=== PATIENT | female | born 1940 | race Two or more races ===

== ENCOUNTER 2024-09-30 19:32 | Emergency (ER) | payer MEDICARE, OTHER ==
[2024-09-30] MEDS: ACETAMINOPHEN TAB 500 MG TAB PO STA (20:12)
[2024-09-30 20:13] LABS: Basophils % (A) 0 %; Eosinophils # (A) 0.1 k/uL (0-0.7); Eosinophils % (A) 1 %; HCT 50.2 % (34.0-46.0); HGB 16.5 gm/dL (11.4-16.0); Lymphocytes # (A) 1.1 k/uL (1.0-4.8); Lymphocytes % (A) 8 %; MCH 28.6 pg (25.0-35.0); MCV 86.8 fL (80.0-100.0); Mean Platelet Volume 9.1; Monocytes # (A) 0.7 k/uL (0-1.0); Monocytes % (A) 5 %; Neutrophils # (A) 11.4 k/uL (1.3-7.7); Neutrophils % (A) 85 %; Platelet Count 189 k/uL (150-450); RBC 5.78 m/uL (3.80-5.40); RDW 14.3 % (11.5-15.5); WBC 13.3 k/uL (3.8-10.6)
[2024-09-30] MEDS: SODIUM CHLORIDE 0.9% 1,000 ML IV ONE (20:15)
[2024-09-30 20:21] LABS: INR 0.9 (<1.2); Prothrombin Time 10.4 sec (10.0-12.5)
[2024-09-30 20:23] LABS: ALT 49 U/L (4-34); AST 61 U/L (14-36); African American GFR (CKD) >90 (>60 ml/min/1.73 sqM); Albumin 4.5 g/dL (3.5-5.0); Alkaline Phosphatase 90 U/L (38-126); Anion Gap 11 mmol/L; Blood Urea Nitrogen 16 mg/dL (7-17); Calcium 9.7 mg/dL (8.4-10.2); Carbon Dioxide 24 mmol/L (22-30); Chloride 104 mmol/L (98-107); Creatine Kinase 774 U/L (30-135); Glucose 130 mg/dL (74-99); Non-African American GFR(CKD) 87 (>60 ml/min/1.73 sqM); Potassium 3.5 mmol/L (3.5-5.1); Sodium 139 mmol/L (137-145); Total Protein 7.4 g/dL (6.3-8.2)
--- NOTE | 2024-09-30 21:08 | CT ---
EXAMINATION TYPE: CT brain wo con DATE OF EXAM: 09/30/2024 9:00 PM COMPARISON: 08/03/2010. CLINICAL INDICATION: Female, 84 years old with history of fall, fall pain TECHNIQUE: Brain: Axial CT images of the brain were obtained with coronal and sagittal reformats created and rev iewed. Contrast used: None. Oral contrast used: None. CT DLP: combined 2203.8 mGycm, Automated exposure control for dose reduction was used. FINDINGS: Brain: Extra-axial spaces: No abnormal extra-axial fluid collections. Ventricular system: Dilatation in proportion to cerebral atrophy. Cerebral parenchyma: Cerebral atrophy. No acute intraparenchymal hemorrhage or mass effect. The dwyer -white junction is well differentiated. Stable prominent sulci in the left occipital lobe. Scattered hypoattenuating areas are seen within the white matter. Cerebellum: Unremarkable. Mass effect: No evidence of midline shift. Intracranial vasculature: Atherosclerotic calcifications of the intracranial vessels. Soft tissues: Normal. Calvarium/osseous structures: No depressed skull fracture. Paranasal sinuses and mastoid air cells: Mild scattered paranasal sinus disease. Visualized orbits: Bilateral aphakia IMPRESSION: 1. No acute intracranial process. 2. Nonspecific white matter changes, likely secondary to chronic small vessel ischemic disease. [facility], , 09/30/2024 9:06 PM
--- NOTE | 2024-09-30 21:16 | ED ---
General Adult HPI <KayjessicaKlaus - Last Filed: 09/30/24 23:56> - General Source: patient, EMS, RN notes reviewed, old records reviewed Mode of arrival: EMS <Young Dinh - Last Filed: 10/01/24 21:21> - General Chief complaint: Fall Stated complaint: Fall Time Seen by Provider: 09/30/24 19:50 - History of Present Illness Initial comments: Patient is an 84-year-old female presents emergency department after a fall. States the shower curtain diandra fell onto her head this morning at home causing her to fall onto the ground. She lives in an independent living facility and did not have her life alert and with her. She was unable to get up from the shower. Did not lose consciousness. Is not on blood thinners. States she did not faint. States she was finally able to get help. Was brought here this evening for evaluation. Endorses chronic left-sided pain which has been present for years. Primarily complaining of neck pain, lower back pain, left hip pain, left knee pain. Denies any headache, chest pain, abdominal pain. No other acute complaints. Presents for further evaluation at this time. States she did not lose consciousness. Is not on blood thinners. (Young Dinh) - Related Data Previous Rx's Medication Instructions Recorded Acetaminophen-Codeine 300-30mg 1 tab PO Q4H PRN #16 tablet 09/30/24 [Tylenol w/codeine #3] Allergies Allergy/AdvReac Type Severity Reaction Status Date / Time acetaminophen [From Vicodin] AdvReac Nausea & Verified 10/01/24 00:00 Vomiting hydrocodone [From Vicodin] AdvReac Nausea & Verified 10/01/24 00:00 Vomiting morphine AdvReac Nausea & Verified 10/01/24 00:00 Vomiting Review of Systems ROS Other: All systems not noted in ROS Statement are negative. <Klaus Okeefe - Last Filed: 09/30/24 23:56> ROS Other: All systems not noted in ROS Statement are negative. <Young Dinh - Last Filed: 10/01/24 21:21> ROS Statement: Those systems with pertinent positive or pertinent negative responses have been documented in the HPI. Review of Systems: CONST: Denies fever EYES: Denies blurry vision ENT: Denies nasal congestion C/V: Denies Chest pain RESP: Denies shortness of breath GI: Denies abdominal pain : Denies dysuria SKIN: Denies rash. 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 HEAD: Normal with no signs of head trauma. Negative Bella sign. Negative raccoon eyes. EYES: PERRLA, EOMI, conjunctiva normal, no discharge. Pupils are 3 mm and equal bilaterally. ENT: Hearing grossly intact, normal oropharynx. RESPIRATORY: Clear breath sounds bilaterally. No wheezes, rales, or rhonchi. C/V: Regular rate and rhythm. S1 and S2 auscultated, no edema, peripheral pulses 2+ and intact throughout ABD: Abd is soft, nontender, nondistended EXT: Relatively normal range of motion with reduced range of motion of the left hip secondary to acute on chronic hip pain as well as reduced range of motion of left knee secondary to acute on chronic pain. Patient does have midline cervical, lumbar spine tenderness to palpation. No significant tenderness to palpation of thoracic spine. No step-offs or deformities of the spine. SKIN: No rashes or lesions observed on exposed skin. NEURO: Alert and oriented x 4. Cranial nerves II-XII intact. No focal sensory or strength deficits. GCS of 15. NIH is 0. (Young Dinh) Course Vital Signs 09/30/24 10/01/24 19:34 00:43 Temperature 97.5 F L 99.1 F Pulse Rate 98 90 Respiratory 20 18 Rate Blood Pressure 198/100 179/81 O2 Sat by Pulse 95 95 Oximetry Medical Decision Making - Lab Data Result diagrams: 09/30/24 20:05 09/30/24 20:05 <Klaus Okeefe - Last Filed: 09/30/24 23:56> - Lab Data Result diagrams: 09/30/24 20:05 09/30/24 20:05 - EKG Data -: EKG Interpreted by Me <Young Dinh - Last Filed: 10/01/24 21:21> - Medical Decision Making Was pt. sent in by a medical professional or institution (, JEANETH, MARRIAGE THERAPIST, urgent care, hospital, or longterm...) When possible be specific @ -No Did you speak to anyone other than the patient for history (EMS, parent, family, police, friend...)? What history was obtained from this source @ -Spoke with patient's son who assist with patient's past medical history including chronic left-sided pain. Did you review nursing and triage notes (agree or disagree)? Why? @ -I reviewed and agree with nursing and triage notes Were old charts reviewed (outside hosp., previous admission, EMS record, old EKG, old radiological studies, urgent care reports/EKG's, longterm records)? Report findings @ -No old charts were reviewed Differential Diagnosis (chest pain, altered mental status, abdominal pain women, abdominal pain men, vaginal bleeding, weakness, fever, dyspnea, syncope, headache, dizziness, GI bleed, back pain, seizure, CVA, palpatations, mental health, musculoskeletal)? @ -Differential Musculoskeletal Muscular strain, contusion, ligament sprain, fracture, arthritis, septic arthritis, bursitis, cellulitis, muscle spasm, nerve compression, DVT, arterial occlusion, herpes zoster, electrolyte abnormality, tumor.... This is not meant to be in all inclusive list EKG interpreted by me (3pts min.). @ -As above X-rays interpreted by me (1pt min.). @ -Pending CT interpreted by me (1pt min.). @ -Pending U/S interpreted by me (1pt. min.). @ -None done What testing was considered but not performed or refused? (CT, X-rays, U/S, labs)? Why? @ -None What meds were considered but not given or refused? Why? @ -None Did you discuss the management of the patient with other professionals (professionals i.e. JEANETH Gutierrez, MARRIAGE THERAPIST, lab, RT, psych nurse, addiction social worker, manufacturing intern, teacher, general service officer, human services case manager)? Give summary @ -No Was smoking cessation discussed for >3mins.? @ -No Was critical care preformed (if so, how long)? @ -No Were there social determinants of health that impacted care today? How? (Homelessness, low income, unemployed, alcoholism, drug addiction, transportation, low edu. Level, literacy, decrease access to med. care, snf, rehab)? @ -No Was there de-escalation of care discussed even if they declined (Discuss DNR or withdrawal of care, Hospice)? DNR status @ -No What co-morbidities impacted this encounter? (DM, HTN, Smoking, COPD, CAD, Cancer, CVA, ARF, Chemo, Hep., AIDS, mental health diagnosis, sleep apnea, morbid obesity)? @ -None Was patient admitted / discharged? Hospital course, mention meds given and route, prescriptions, significant lab abnormalities, going to OR and other pertinent info. @ -Patient is an 84-year-old female who presents following a fall this morning. Was unable to get back up and was brought this evening for further evaluation. She will be given Tylenol for pain as well as 1 L fluid bolus. Will obtain generalized workup. Is not on blood thinners. Did not lose consciousness. Does not meet criteria for trauma activation. We will obtain imaging of the left hip and knee as well as chest and pelvis x-ray. We also obtain CT imaging of the brain, spine. Patient was in agreement this plan. Vital signs are within acceptable limits. Patient's son who is at bedside was also in agreement this plan. EKG shows left bundle branch block with no prior for comparison. Labs remarkable for mild leukocytosis of 13, elevated hemoglobin of 16. Likely related to dehydration from being on the ground all day. Urine is pending. Creatinine kinase is elevated at 774. At this time, imaging results are pending. Patient does have cervical collar in place since arrival. Patient signed out to Dr. Okeefe pending further results of workup. Undiagnosed new problem with uncertain prognosis? @ -No Drug Therapy requiring intensive monitoring for toxicity (Heparin, Nitro, Insulin, Cardizem)? @ -No Were any procedures done? @ -No (Young Dinh) - Lab Data Lab Results 09/30/24 09/30/24 09/30/24 Range/Units 20:05 20:05 20:05 WBC 13.3 H (3.8-10.6) k/uL RBC 5.78 H (3.80-5.40) m/uL Hgb 16.5 H (11.4-16.0) gm/dL Hct 50.2 H (34.0-46.0) % MCV 86.8 (80.0-100.0) fL MCH 28.6 (25.0-35.0) pg MCHC 33.0 (31.0-37.0) g/dL RDW 14.3 (11.5-15.5) % Plt Count 189 (150-450) k/uL MPV 9.1 Neutrophils % 85 % Lymphocytes % 8 % Monocytes % 5 % Eosinophils % 1 % Basophils % 0 % Neutrophils # 11.4 H (1.3-7.7) k/uL Lymphocytes # 1.1 (1.0-4.8) k/uL Monocytes # 0.7 (0-1.0) k/uL Eosinophils # 0.1 (0-0.7) k/uL Basophils # 0.0 (0-0.2) k/uL PT 10.4 (10.0-12.5) sec INR 0.9 (<1.2) APTT 23.0 (22.0-30.0) sec Sodium 139 (137-145) mmol/L Potassium 3.5 (3.5-5.1) mmol/L Chloride 104 (98-107) mmol/L Carbon Dioxide 24 (22-30) mmol/L Anion Gap 11 mmol/L BUN 16 (7-17) mg/dL Creatinine 0.53 (0.52-1.04) mg/dL Est GFR (CKD-EPI)AfAm >90 (>60 ml/min/1.73 sqM) Est GFR (CKD-EPI)NonAf 87 (>60 ml/min/1.73 sqM) Glucose 130 H (74-99) mg/dL Calcium 9.7 (8.4-10.2) mg/dL Total Bilirubin 1.0 (0.2-1.3) mg/dL AST 61 H (14-36) U/L ALT 49 H (4-34) U/L Alkaline Phosphatase 90 (38-126) U/L Creatine Kinase 774 H (30-135) U/L Total Protein 7.4 (6.3-8.2) g/dL Albumin 4.5 (3.5-5.0) g/dL Urine Color Urine Appearance (Clear) Urine pH (5.0-8.0) Ur Specific [place] (1.001-1.035) Urine Protein (Negative) Urine Glucose (UA) (Negative) Urine Ketones (Negative) Urine Blood (Negative) Urine Nitrite (Negative) Urine Bilirubin (Negative) Urine Urobilinogen (<2.0) mg/dL Ur Leukocyte Esterase (Negative) Urine RBC (0-5) /hpf Urine WBC (0-5) /hpf Amorphous Sediment (None) /hpf Hyaline Casts (0-2) /lpf 09/30/24 Range/Units 23:40 WBC (3.8-10.6) k/uL RBC (3.80-5.40) m/uL Hgb (11.4-16.0) gm/dL Hct (34.0-46.0) % MCV (80.0-100.0) fL MCH (25.0-35.0) pg MCHC (31.0-37.0) g/dL RDW (11.5-15.5) % Plt Count (150-450) k/uL MPV Neutrophils % % Lymphocytes % % Monocytes % % Eosinophils % % Basophils % % Neutrophils # (1.3-7.7) k/uL Lymphocytes # (1.0-4.8) k/uL Monocytes # (0-1.0) k/uL Eosinophils # (0-0.7) k/uL Basophils # (0-0.2) k/uL PT (10.0-12.5) sec INR (<1.2) APTT (22.0-30.0) sec Sodium (137-145) mmol/L Potassium (3.5-5.1) mmol/L Chloride (98-107) mmol/L Carbon Dioxide (22-30) mmol/L Anion Gap mmol/L BUN (7-17) mg/dL Creatinine (0.52-1.04) mg/dL Est GFR (CKD-EPI)AfAm (>60 ml/min/1.73 sqM) Est GFR (CKD-EPI)NonAf (>60 ml/min/1.73 sqM) Glucose (74-99) mg/dL Calcium (8.4-10.2) mg/dL Total Bilirubin (0.2-1.3) mg/dL AST (14-36) U/L ALT (4-34) U/L Alkaline Phosphatase (38-126) U/L Creatine Kinase (30-135) U/L Total Protein (6.3-8.2) g/dL Albumin (3.5-5.0) g/dL Urine Color Colorless Urine Appearance Clear (Clear) Urine pH 6.0 (5.0-8.0) Ur Specific [place] 1.018 (1.001-1.035) Urine Protein 1+ H (Negative) Urine Glucose (UA) Trace H (Negative) Urine Ketones 3+ H (Negative) Urine Blood Moderate H (Negative) Urine Nitrite Negative (Negative) Urine Bilirubin Negative (Negative) Urine Urobilinogen <2.0 (<2.0) mg/dL Ur Leukocyte Esterase Negative (Negative) Urine RBC 17 H (0-5) /hpf Urine WBC 2 (0-5) /hpf Amorphous Sediment Rare H (None) /hpf Hyaline Casts 1 (0-2) /lpf - EKG Data EKG Comments: 12-lead Electrocardiogram Interpretation Note EKG was reviewed and interpreted by myself. 12-lead ECG performed at 2001 is interpreted by me as revealing normal sinus rhythm at a rate of 92 beats per minute. [place] is normal. SC interval is 153 ms, QRS durations 104 ms, QTc is 437 ms.. Bundle branch block morphology present. No obvious acute ischemic process noted.. R wave progression across the precordium was satisfactory. By my interpretation this EKG is non-diagnostic for acute ischemia. (Young Dinh) Disposition Is patient prescribed a controlled substance at d/c from ED?: No <Klaus Okeefe - Last Filed: 09/30/24 23:56> <Young Dinh - Last Filed: 10/01/24 21:21> Clinical Impression: Fall, Contusion, back Disposition: HOME SELF-CARE Condition: Good Instructions (If sedation given, give patient instructions): Fall Prevention for Older Adults (ED), Contusion in Adults (ED) Prescriptions: Acetaminophen-Codeine 300-30mg [Tylenol w/codeine #3] 1 tab PO Q4H PRN #16 tablet PRN Reason: Pain Referrals: Marcus Grossman MD [Primary Care Provider] - 1-2 days
--- NOTE | 2024-09-30 21:24 | CT ---
EXAMINATION TYPE: CT CervThorLumbar spine wo con DATE OF EXAM: 09/30/2024 9:00 PM COMPARISON: None CLINICAL INDICATION: Female, 84 years old with history of fall, pain; Fall, back pain TECHNIQUE: Axial images of the spine were obtained without contrast. Coronal and sagittal reformats w ere performed. CT Contrast: Contrast used: mL of , none. Oral contrast used: none. CT DLP: combined 2203.8 mGycm, Automated exposure control for dose reduction was used. FINDINGS: Multilevel degeneration changes throughout the spine with osteophyte formation disc space narrowing, Schmorl's nodes facet joint arthropathy. Coarsened trabeculation and a few of the vertebral bodies mo st pronounced at T10 . Mild levoscoliosis apex T6-T7. No evidence of fracture. Mild atelectasis along the medial aspect of the right lower lung. Moderate severe atherosclerosis of the arterial vasculature. IMPRESSION: 1. No evidence of fracture. 2. No evidence for significant spinal canal or neural foraminal stenosis. 3. Mild degeneration changes throughout the spine. [facility], , 09/30/2024 9:22 PM
[2024-09-30] MEDS: SODIUM CHLORIDE 0.9% 1,000 ML IV STA (21:35)
--- NOTE | 2024-09-30 22:00 | XR ---
EXAMINATION TYPE: XR pelvis AP view DATE OF EXAM: 09/30/2024 9:56 PM COMPARISON: None CLINICAL INDICATION: Female, 84 years old with history of pain; pain H TECHNIQUE: XR pelvis AP view, examined in a single projection. FINDINGS: There is no evidence of fracture or dislocation. There is no soft tissue abnormality. No a bnormal calcifications are present. The spine appears intact. The hips appear intact. Osteophyte form ation of the superior acetabulum bilaterally with mild joint space narrowing. IMPRESSION: 1. No acute osseous pathology. 2. Moderate degeneration changes of the hip. [facility], , 09/30/2024 9:57 PM
--- NOTE | 2024-09-30 22:01 | XR ---
EXAMINATION TYPE: XR chest 1V portable DATE OF EXAM: 09/30/2024 9:57 PM COMPARISON: None CLINICAL INDICATION: Female, 84 years old with history of fall, pain; TECHNIQUE: XR chest 1V portable Frontal view of the chest. FINDINGS: Lungs/Pleura: There is no evidence of pleural effusion, focal consolidation, or pneumothorax. Pulmonary vascularity: Unremarkable. Heart/mediastinum: Cardiomediastinal silhouette is prominent in size. Atherosclerotic calcifications are seen in the aorta. Musculoskeletal: No acute osseous pathology. IMPRESSION: No acute cardiopulmonary disease/process. [facility], , 09/30/2024 9:59 PM
--- NOTE | 2024-09-30 22:01 | XR ---
EXAMINATION TYPE: XR knee complete LT DATE OF EXAM: 09/30/2024 9:56 PM COMPARISON: None CLINICAL INDICATION: Female, 84 years old with history of pain; pain TECHNIQUE: XR knee complete LT 3 views submitted. FINDINGS: No evidence of any acute osseous pathology, soft tissue swelling, or joint effusion is no christian. Tricompartmental osteophyte formation involving the femoral condyles, tibial plateau and patella . Mild joint space narrowing. IMPRESSION: 1. No acute osseous pathology. 2. Mild tricompartmental osteoarthritic changes. [facility], , 09/30/2024 9:58 PM
[2024-09-30] MEDS: MORPHINE SULFATE 2 MG/ML SYRINGE IV STA (23:52)
[2024-09-30] MEDS: ONDANSETRON 4 MG/2 ML VIAL IVP STA (23:57)
[2024-10-01 00:11] LABS: Amorphous Sediment,Urine Rare /hpf; Appearance,Urine Clear (Clear); Bilirubin,Urine Negative (Negative); Blood,Urine Moderate (Negative); Color,Urine Colorless; Glucose,Urine (UA) Trace (Negative); Hyaline Casts,Urine 1 /lpf (0-2); Ketones,Urine 3+ (Negative); Leukocyte Esterase,Urine Negative (Negative); Nitrite,Urine Negative (Negative); Protein,Urine 1+ (Negative); RBC,Urine 17 /hpf (0-5); Specific Gravity,Urine 1.018 (1.001-1.035); Urobilinogen,Urine <2.0 mg/dL (<2.0); WBC,Urine 2 /hpf (0-5)
[2024-10-01 00:44] VITALS: BP 179/81; PULSE 90; RESP 18; TEMP 99.1
== END 2024-10-01 00:45 | disposition home or self-care (01) ==
LOC: EC 19:32
DX: S30.0XXA Contusion of lower back and pelvis, initial encounter (principal); M54.2 Cervicalgia; M25.552 Pain in left hip; M25.562 Pain in left knee; Z88.6 Allergy status to analgesic agent; Z88.5 Allergy status to narcotic agent; W20.8XXA Other cause of strike by thrown, projected or falling object, initial encounter; Y93.E1 Activity, personal bathing and showering
CPT/HCPCS: 36415; 93005; 80053; 82550; 85025; 85610; 85730; 81001; 72170; 73562; 71045; 72128; 72125; 72131; 70450; 99285; 96374; 96375; 96361; J2405; J2270